=== PATIENT | female | born 1995 | race Caucasian/White ===

== ENCOUNTER 2017-03-13 23:19 | Observation (INO) | payer OTHER ==
[~2017-03-13] VITALS: Ht 157.5 cm; Wt 51.0 kg
[2017-03-14 00:24] LABS: BASO % 0.2 % (0.1-1.2); EOS # 0.1 10_X3_uL (0.0-0.4); EOS % 1.1 % (0.7-5.8); GRAN % 69.4 % (34.0-71.1); HEMATOCRIT 38.7 % (34-45); HEMOGLOBIN 13.5 g/dL (11.2-15.7); LYMPH # 2.4 10_X3_uL (1.2-3.7); LYMPH % 23.3 % (19.3-51.7); MEAN CORPUSCULAR HEMOGLOBIN 34.4 pg (27.0-33.0); MEAN CORPUSCULAR HGB CONC 34.9 g/dL (32.0-36.0); MEAN CORPUSCULAR VOLUME 98.5 fL (79-95); MEAN PLATELET VOLUME 8.9 fl (7.5-11.5); MONO # 0.6 10_X3_uL (0.2-0.9); PLATELET COUNT 358 x10_3/uL (182-369); RED BLOOD COUNT 3.93 x10_6/uL (3.9-5.2); WHITE BLOOD COUNT 10.1 x10_3/uL (4.0-10.0)
[2017-03-14 00:40] LABS: BLOOD UREA NITROGEN 11 mg/dL (7-18); CALCIUM 9.7 mg/dL (8.7-10.7); CARBON DIOXIDE 26 mmol/L (21-32); CREATININE < 0.5 mg/dL (0.6-1.3); GLUCOSE,RANDOM 85 mg/dL (70-99); POTASSIUM 3.6 mmol/L (3.5-5.1); SODIUM 138 mmol/L (136-145)
[2017-03-14 02:34] LABS: PROTHROMBIN TIME (PATIENT) 10.2 SECONDS (9.6-10.8)
[2017-03-14 02:35] LABS: PARTIAL THROMBOPLASTIN TIME 25.9 SECONDS (21.8-28.4)
[2017-03-14 07:20] LABS: CKMB < 1.0 ng/ml (0.0-5.0); TROP-I < 0.30 NG/ML (0.00-0.30)
[2017-03-14 12:47] LABS: CKMB < 1.0 ng/ml (0.0-5.0); TROP-I < 0.30 NG/ML (0.00-0.30)
[2017-03-14 19:14] LABS: CKMB < 1.0 ng/ml (0.0-5.0); TROP-I < 0.30 NG/ML (0.00-0.30)
[2017-03-15 07:28] LABS: HEMATOCRIT 37.9 % (34-45); HEMOGLOBIN 12.7 g/dL (11.2-15.7); MEAN CORPUSCULAR HEMOGLOBIN 33.8 pg (27.0-33.0); MEAN CORPUSCULAR HGB CONC 33.5 g/dL (32.0-36.0); MEAN CORPUSCULAR VOLUME 100.8 fL (79-95); MEAN PLATELET VOLUME 9.7 fl (7.5-11.5); RED BLOOD COUNT 3.76 x10_6/uL (3.9-5.2); WHITE BLOOD COUNT 8.7 x10_3/uL (4.0-10.0)
[2017-03-15 07:45] LABS: CALCIUM 8.7 mg/dL (8.7-10.7); CARBON DIOXIDE 24 mmol/L (21-32); CREATININE < 0.5 mg/dL (0.6-1.3); GLUCOSE,RANDOM 103 mg/dL (70-99); MAGNESIUM 1.9 mg/dL (1.8-2.4); POTASSIUM 3.9 mmol/L (3.5-5.1); SODIUM 142 mmol/L (136-145)
[2017-03-15 07:53] LABS: BLOOD UREA NITROGEN 19 mg/dL (7-18)
[2017-03-16 00:09] LABS: CKMB < 1.0 ng/ml (0.0-5.0); TROP-I < 0.30 NG/ML (0.00-0.30)
== END 2017-03-16 11:55 | disposition home or self-care (01) ==
LOC: ER 23:19 → MS 03-14 01:34
PROVIDERS: Family Medicine; General Practice; ADMIT Internal Medicine
DX: R07.89 Other chest pain (principal); R00.2 Palpitations; I49.1 Atrial premature depolarization; F19.10 Other psychoactive substance abuse, uncomplicated; F43.10 Post-traumatic stress disorder, unspecified; F41.0 Panic disorder [episodic paroxysmal anxiety]; J44.9 Chronic obstructive pulmonary disease, unspecified; R06.02 Shortness of breath; Z88.0 Allergy status to penicillin; Z88.2 Allergy status to sulfonamides; F17.210 Nicotine dependence, cigarettes, uncomplicated; Z83.3 Family history of diabetes mellitus; Z82.49 Family history of ischemic heart disease and other diseases of the circulatory system
CPT/HCPCS: 36415; 71020; 80048; 80061; 80307; 81025; 82550; 82553; 83605; 83735; 84443; 85025; 85379; 85610; 85730; 87040; 93005; 93041; 93306; 99285-25; G0378